=== PATIENT | female | born 1955 | race Caucasian/White ===

== ENCOUNTER 2022-09-18 12:20 | Outpatient (CLI) | payer OTHER, SELFPAY ==
--- NOTE | 2022-09-18 15:00 | NEURO_ITS ---
Impression: # Complains of gait instability. # Normal motor and sensory Nerve Conduction Study. # Normal needle/EMG exam. # Clinical correlation recommended. Nerve Conduction Studies Anti Sensory Summary Table Stim Site NR Peak (ms) P-T Amp (?V) Site1 Site2 Delta-P (ms) Dist (cm) Joselo (m/s) Left Sup Fibular Anti Sensory (Ant Lat Mall) 14 cm 3.2 2.8 14 cm Ant Lat Mall 3.2 16.0 50 Right Sup Fibular Anti Sensory (Ant Lat Mall) 14 cm 3.4 7.3 14 cm Ant Lat Mall 3.4 16.0 47 Left Sural Anti Sensory (Lat Mall) Calf 3.8 10.9 Calf Lat Mall 3.8 16.0 42 Right Sural Anti Sensory (Lat Mall) Calf 3.6 7.2 Calf Lat Mall 3.6 16.0 44 Motor Summary Table Stim Site NR Onset (ms) O-P Amp (mV) Site1 Site2 Delta-0 (ms) Dist (cm) Joselo (m/s) Left Peroneal Motor (Vastus Med) Ankle 3.9 0.6 Popit Ankle 7.4 34.0 46 Popit 11.3 0.5 Right Peroneal Motor (Vastus Med) Ankle 3.9 2.2 Popit Ankle 7.0 33.0 47 Popit 10.9 1.9 Left Tibial Motor (Abd Nielson Brev) Ankle 3.8 2.5 Knee Ankle 8.0 38.0 48 Knee 11.8 2.0 Right Tibial Motor (Abd Nielson Brev) Ankle 3.9 5.3 Knee Ankle 7.4 35.0 47 Knee 11.3 3.7 F Wave Studies NR F-Lat (ms) L-R F-Lat (ms) Left Peroneal (Mrkrs) (EDB) 48.16 0.70 Right Peroneal (Mrkrs) (EDB) 47.46 0.70 Left Tibial (Mrkrs) (Abd Hallucis) 48.37 0.38 Right Tibial (Mrkrs) (Abd Hallucis) 48.75 0.38 EMG Side Muscle Nerve Root Ins Act Fibs Amp Dur Recrt Comment Right AntTibialis Dp Br Fibular L4-5 Nml Nml Nml Nml Nml Right Gastroc Tibial S1-2 Nml Nml Nml Nml Nml Right Fibularis Long Sup Br Fibular L5-S1 Nml Nml Nml Nml Nml Right Flex Dig Long Tibial L5-S2 Nml Nml Nml Nml Nml Right Ext Dig Brev Dp Br Fibular L5, S1 Nml Nml Nml Nml Nml Left AntTibialis Dp Br Fibular L4-5 Nml Nml Nml Nml Nml Left Gastroc Tibial S1-2 Nml Nml Nml Nml Nml Left Fibularis Long Sup Br Fibular L5-S1 Nml Nml Nml Nml Nml Left Flex Dig Long Tibial L5-S2 Nml Nml Nml Nml Nml Left Ext Dig Brev Dp Br Fibular L5, S1 Nml Nml Nml Nml Nml Right QuadratusFem QuadFemoris L4-5, S1 Nml Nml Nml Nml Nml Left QuadratusFem QuadFemoris L4-5, S1 Nml Nml Nml Nml Nml MTDD
== END 2022-09-18 12:21 | disposition home or self-care (01) ==
LOC: ANHNEURO 12:23
PROVIDERS: PCP Internal Medicine Gastroenterology; Visit Provider Student in an Organized Health Care Education/Training Program
DX: R26.89 Other abnormalities of gait and mobility (principal)
CPT/HCPCS: 95886; 95910

== ENCOUNTER 2023-04-22 11:18 | Outpatient (CLI) | payer OTHER, SELFPAY ==
[2023-04-22 11:48] LABS: Basophils Absolute Auto 0.1 K/mm3 (0.0-0.1); Basophils Percent Auto 0.5 % (0.2-1.2); Eosinophils Absolute Auto 0.6 K/mm3 (0-0.3); Eosinophils Percent Auto 4.8 % (0-4.4); Hematocrit 43.1 % (37.0-47.0); Hemoglobin 14.2 g/dL (12.0-15.0); Immature Granulocyte Absolute 0.06 K/mm3 (0.00-0.031); Immature Granulocyte Percent A 0.5 % (0-0.5); Lymphocytes Absolute Auto 4.55 K/mm3 (0.9-3.2); Lymphocytes Percent Auto 35.3 % (18.3-44.2); Mean Corpuscular HGB Conc 32.9 g/dl (32-36); Mean Corpuscular Hemoglobin 31.3 pg (26-34); Mean Corpuscular Volume 94.9 fl (80-100); Mean Platelet Volume 9.9 fl (7.4-10.4); Monocytes Percent Auto 7.6 % (2.6-8.5); Neutrophils Absolute Auto 6.6 K/mm3 (1.3-6.7); Neutrophils Percent Auto 51.3 % (45.5-73.1); Platelet Count Result 196 k/mm3 (150-375); Red Blood Count 4.54 M/mm3 (4.2-5.4); Red Cell Distribution Width 13.2 % (11.5-14.5); White Blood Count 12.9 K/mm3 (4.5-10.0)
[2023-04-22 14:03] LABS: Alanine Aminotransferase 29 U/L (6-35); Albumin Level 4.6 g/dL (3.5-5.1); Alkaline Phosphatase 77 U/L (38-126); Anion Gap 10 mmol/L (8-16); Aspartate Amino Transferase 36 U/L (14-36); Bilirubin,Total 0.6 mg/dL (0.2-1.3); Blood Urea Nitrogen 11 mg/dL (7-17); Calcium 9.8 mg/dL (8.4-10.2); Carbon Dioxide 26 mmol/L (22-30); Chloride 103 mmol/L (98-107); Estimated Glomerular Filt Rate > 60; Glucose 85 mg/dL (65-110); Potassium 4.2 mmol/L (3.4-5.0); Sodium 139 mmol/L (137-145)
[2023-04-23 08:26] LABS: Immunoglobulin A 129 mg/dL (70-400); Immunoglobulin G 974 mg/dL (700-1600); Immunoglobulin M 273 mg/dL (40-230)
[2023-04-24 08:17] LABS: Kappa\\Lambda Light Chains 1.16 (0.26-1.65); Lambda Light Chain 14.7 mg/L (5.7-26.3)
[2023-04-24 12:14] LABS: Albumin 4.4 g/dL (3.8-4.8); Alpha 1 Globulin 0.3 g/dL (0.2-0.3); Alpha 2 Globulin 0.8 g/dL (0.5-0.9); Beta 1 Globulin 0.5 g/dL (0.4-0.6); Gamma Globulin 0.9 g/dL (0.8-1.7); Protein, Total 7.3 g/dL (6.1-8.1)
== END 2023-04-22 11:19 | disposition home or self-care (01) ==
LOC: ANHLAB 11:20
PROVIDERS: PCP Internal Medicine Gastroenterology; Visit Provider Internal Medicine Hematology & Oncology
DX: D72.9 Disorder of white blood cells, unspecified (principal)
CPT/HCPCS: 36415; 80053; 82784; 83883; 84155; 84165; 85025

== ENCOUNTER 2023-05-01 13:12 | Outpatient (CLI) | payer OTHER, SELFPAY ==
--- NOTE | ~2023-05-01 | XR_ITS ---
EXAMINATION: BONE SURVEY/METASTATIC SURVEY DATE: 05/01/2023 INDICATION: Plasma cell disorder TECHNIQUE: A skeletal survey was performed including AP views of the chest, abdomen and pelvis; AP an d lateral/lateral swimmers views of the cervical, thoracic and lumbar spine; lateral view of the skul l, and AP and lateral views of the appendicular skeleton excluding the hands and feet. COMPARISON: None. FINDINGS: There are compression fractures at T12 with 40% anterior vertebral body height loss and at L1 with 20 % anterior vertebral body height loss. Additional minimal to mild anterior wedging at T7, T8, T10 and T11. Moderate cervical, thoracic and lumbar spondylosis. No suspicious lytic or blastic bone lesions in the axial or appendicular skeleton. Mild eventration along the right hemidiaphragm. No focal airs pace opacities, pulmonary edema, pleural effusion or pneumothorax. Heart size is normal. IMPRESSION: 1. No lytic bone lesions to suggest multiple myeloma. 2. Moderate spondylosis with a few compression fractures in the thoracic spine and at L1. Reviewed, dictated and finalized at location B. [employer]
== END 2023-05-01 13:13 | disposition home or self-care (01) ==
LOC: ANHIMG 13:14
PROVIDERS: PCP Internal Medicine Gastroenterology; Visit Provider Internal Medicine
DX: D72.9 Disorder of white blood cells, unspecified (principal); M47.894 Other spondylosis, thoracic region
CPT/HCPCS: 77075